=== PATIENT | female | born 1995 | race American Indian/Alaskan Native ===

== ENCOUNTER 2020-01-06 09:24 | Emergency (ER) | payer MEDICAID ==
[2020-01-06 09:52] VITALS: BP 106/63
[2020-01-06 10:13] LABS: Basophils # (Auto) 0.2 K/mm3 (0.0-0.1); Eosinophils # (Auto) 0.2 K/mm3 (0.0-0.4); Eosinophils % (Auto) 2.5 % (0.0-4.3); Hematocrit 27.4 % (30.3-42.9); Hemoglobin 8.5 gm/dl (10.1-14.3); Lymphocytes # (Auto) 1.4 K/mm3 (1.2-5.4); Lymphocytes % (Auto) 18.6 % (13.4-35.0); Mean Corpuscular HGB Conc 31 % (30-34); Monocytes # (Auto) 0.6 K/mm3 (0.0-0.8); Monocytes % (Auto) 7.6 % (0.0-7.3); Platelet Count 457 K/mm3 (140-440); Red Blood Count 4.06 M/mm3 (3.65-5.03)
[2020-01-06 10:19] LABS: Mean Corpuscular Volume 68 fl (79-97); Red Cell Distribution Width 20.5 % (13.2-15.2)
[2020-01-06 10:32] LABS: Blood Urea Nitrogen 9 mg/dL (7-17); Calcium 9.1 mg/dL (8.4-10.2); Hemolysis Index 8
[2020-01-06 10:34] LABS: BUN/Creatinine Ratio 13
[2020-01-06 11:21] LABS: HCG Qualitative,Urine Negative (Negative)
[2020-01-06 11:23] LABS: Amphetamine Screen,Urine Negative; Benzodiazepines Screen,Urine Negative; Methadone Screen,Urine Negative; Opiate Screen,Urine Negative
--- NOTE | 2020-01-06 11:23 | Emergency Department Report ---
ED Medical Clearance HPI - General Chief complaint: Medical Clearance Stated complaint: MEDICAL CLEARENCE Time Seen by Provider: 01/06/20 10:32 Source: patient Mode of arrival: Ambulatory - History of Present Illness Initial comments: Patient is a 24-year-old female presents emergency room for medical clearance for [facility]. She states that she has been at [facility] now for 2 [facility]. She states that she is at [facility] for anxiety, bipolar, depression. Patient states that she stayed out past of her curfew last night and [facility] will not reaccept her until she has had a medical clearance performed. She denies any SI or HI. She denies any physical complaints or any symptoms. She states that she does have a past medical history of iron deficiency anemia and is supposed to be on iron supplement but has not taken it for multiple months. She denies ever having to be transfused. She denies any allergies to medications. Last menstrual cycle 12/25/2019. Home medications: Previous Rx's Medication Instructions Recorded Last Taken Type Docusate Sodium [Colace] 100 mg PO BID PRN #60 capsule 01/06/20 Unknown Rx Ferrous Sulfate [Ferrous Sulfate 324 mg PO DAILY #30 tablet. 01/06/20 Unknown Rx 324 MG] cephALEXin [Keflex] 500 mg PO BID 7 Days #14 cap 01/06/20 Unknown Rx Allergies/Adverse reactions: Allergies Allergy/AdvReac Type Severity Reaction Status Date / Time No Known Allergies Allergy Unverified 12/21/19 22:08 ED Review of Systems ROS: Stated complaint: MEDICAL CLEARENCE Other details as noted in HPI Comment: All other systems reviewed and negative ED Past Medical Hx - Past Medical History Previous Medical History?: Yes Hx Psychiatric Treatment: Yes ([facility]) - Surgical History Past Surgical History?: No - Social History Smoking Status: Current Every Day Smoker Substance Use Type: Alcohol - Medications Home Medications: Home Medications Medication Instructions Recorded Confirmed Last Taken Type Docusate Sodium [Colace] 100 mg PO BID PRN #60 capsule 01/06/20 Unknown Rx Ferrous Sulfate [Ferrous Sulfate 324 mg PO DAILY #30 tablet. 01/06/20 Unknown Rx 324 MG] cephALEXin [Keflex] 500 mg PO BID 7 Days #14 cap 01/06/20 Unknown Rx ED Physical Exam - General Limitations: No Limitations General appearance: alert, in no apparent distress - Head Head exam: Present: atraumatic, normocephalic - Eye Eye exam: Present: normal appearance - ENT ENT exam: Present: mucous membranes moist - Respiratory Respiratory exam: Present: normal lung sounds bilaterally. Absent: respiratory distress, wheezes, rales, rhonchi, stridor, chest wall tenderness, accessory muscle use, decreased breath sounds, prolonged expiratory - Cardiovascular Cardiovascular Exam: Present: regular rate, normal rhythm, normal heart sounds. Absent: systolic murmur, diastolic murmur, rubs, gallop - Neurological Exam Neurological exam: Present: alert, oriented X3 - Psychiatric Psychiatric exam: Present: normal affect, normal mood - Skin Skin exam: Present: warm, dry, intact ED Course Vital Signs 01/06/20 09:47 Temperature 98.6 F Pulse Rate 111 H Respiratory 16 Rate Blood Pressure 106/63 O2 Sat by Pulse 99 Oximetry ED Medical Decision Making - Lab Data Result diagrams: 01/06/20 09:56 01/06/20 09:56 Lab Results 01/06/20 01/06/20 01/06/20 Range/Units 09:56 09:56 09:56 WBC (4.5-11.0) K/mm3 RBC (3.65-5.03) M/mm3 Hgb (10.1-14.3) gm/dl Hct (30.3-42.9) % MCV (79-97) fl MCH (28-32) pg MCHC (30-34) % RDW (13.2-15.2) % Plt Count (140-440) K/mm3 Lymph % (Auto) (13.4-35.0) % [place] % (Auto) (0.0-7.3) % Eos % (Auto) (0.0-4.3) % Baso % (Auto) (0.0-1.8) % Lymph # (Auto) (1.2-5.4) K/mm3 [place] # (Auto) (0.0-0.8) K/mm3 Eos # (Auto) (0.0-0.4) K/mm3 Baso # (Auto) (0.0-0.1) K/mm3 Seg Neutrophils % (40.0-70.0) % Seg Neutrophils # (1.8-7.7) K/mm3 Sodium 138 (137-145) mmol/L Potassium 4.0 (3.6-5.0) mmol/L Chloride 105.6 (98-107) mmol/L Carbon Dioxide 23 (22-30) mmol/L Anion Gap 13 mmol/L BUN 9 (7-17) mg/dL Creatinine 0.7 (0.6-1.2) mg/dL Estimated GFR > 60 ml/min BUN/Creatinine Ratio 13 % Glucose 78 (65-100) mg/dL Calcium 9.1 (8.4-10.2) mg/dL Urine Color (Yellow) Urine Turbidity (Clear) Urine pH (5.0-7.0) Ur Specific [place] (1.003-1.030) Urine Protein (Negative) mg/dL Urine Glucose (UA) (Negative) mg/dL Urine Ketones (Negative) mg/dL Urine Blood (Negative) Urine Nitrite (Negative) Ur Reducing Substances Urine Bilirubin (Negative) Urine Ictotest Urine Urobilinogen (<2.0) mg/dL Ur Leukocyte Esterase (Negative) Urine WBC (Auto) (0.0-6.0) /HPF Urine RBC (Auto) (0.0-6.0) /HPF U Epithel Cells (Auto) (0-13.0) /HPF Urine Bacteria (Auto) (Negative) /HPF Urine HCG, Qual (Negative) Salicylates < 0.3 L (2.8-20.0) mg/dL Urine Opiates Screen Urine Methadone Screen Acetaminophen 5.0 L (10.0-30.0) ug/mL Ur Barbiturates Screen Ur Phencyclidine Scrn Ur Amphetamines Screen U Benzodiazepines Scrn Urine Cocaine Screen U Marijuana (THC) Screen Drugs of Abuse Note Plasma/Serum Alcohol (0-0.07) % 01/06/20 01/06/20 01/06/20 Range/Units 09:56 09:56 Unknown WBC 7.8 (4.5-11.0) K/mm3 RBC 4.06 (3.65-5.03) M/mm3 Hgb 8.5 L (10.1-14.3) gm/dl Hct 27.4 L (30.3-42.9) % MCV 68 L (79-97) fl MCH 21 L (28-32) pg MCHC 31 (30-34) % RDW 20.5 H (13.2-15.2) % Plt Count 457 H (140-440) K/mm3 Lymph % (Auto) 18.6 (13.4-35.0) % [place] % (Auto) 7.6 H (0.0-7.3) % Eos % (Auto) 2.5 (0.0-4.3) % Baso % (Auto) 2.0 H (0.0-1.8) % Lymph # (Auto) 1.4 (1.2-5.4) K/mm3 [place] # (Auto) 0.6 (0.0-0.8) K/mm3 Eos # (Auto) 0.2 (0.0-0.4) K/mm3 Baso # (Auto) 0.2 H (0.0-0.1) K/mm3 Seg Neutrophils % 69.3 (40.0-70.0) % Seg Neutrophils # 5.4 (1.8-7.7) K/mm3 Sodium (137-145) mmol/L Potassium (3.6-5.0) mmol/L Chloride (98-107) mmol/L Carbon Dioxide (22-30) mmol/L Anion Gap mmol/L BUN (7-17) mg/dL Creatinine (0.6-1.2) mg/dL Estimated GFR ml/min BUN/Creatinine Ratio % Glucose (65-100) mg/dL Calcium (8.4-10.2) mg/dL Urine Color Straw (Yellow) Urine Turbidity Clear (Clear) Urine pH 6.0 (5.0-7.0) Ur Specific [place] 1.013 (1.003-1.030) Urine Protein <15 mg/dl (Negative) mg/dL Urine Glucose (UA) Neg (Negative) mg/dL Urine Ketones Neg (Negative) mg/dL Urine Blood Sm (Negative) Urine Nitrite Neg (Negative) Ur Reducing Substances Not Reportable Urine Bilirubin Neg (Negative) Urine Ictotest Not Reportable Urine Urobilinogen < 2.0 (<2.0) mg/dL Ur Leukocyte Esterase Sm (Negative) Urine WBC (Auto) 11.0 H (0.0-6.0) /HPF Urine RBC (Auto) 3.0 (0.0-6.0) /HPF U Epithel Cells (Auto) 3.0 (0-13.0) /HPF Urine Bacteria (Auto) 2+ (Negative) /HPF Urine HCG, Qual Negative (Negative) Salicylates (2.8-20.0) mg/dL Urine Opiates Screen Urine Methadone Screen Acetaminophen (10.0-30.0) ug/mL Ur Barbiturates Screen Ur Phencyclidine Scrn Ur Amphetamines Screen U Benzodiazepines Scrn Urine Cocaine Screen U Marijuana (THC) Screen Drugs of Abuse Note Plasma/Serum Alcohol 0.01 (0-0.07) % 01/06/20 Range/Units Unknown WBC (4.5-11.0) K/mm3 RBC (3.65-5.03) M/mm3 Hgb (10.1-14.3) gm/dl Hct (30.3-42.9) % MCV (79-97) fl MCH (28-32) pg MCHC (30-34) % RDW (13.2-15.2) % Plt Count (140-440) K/mm3 Lymph % (Auto) (13.4-35.0) % [place] % (Auto) (0.0-7.3) % Eos % (Auto) (0.0-4.3) % Baso % (Auto) (0.0-1.8) % Lymph # (Auto) (1.2-5.4) K/mm3 [place] # (Auto) (0.0-0.8) K/mm3 Eos # (Auto) (0.0-0.4) K/mm3 Baso # (Auto) (0.0-0.1) K/mm3 Seg Neutrophils % (40.0-70.0) % Seg Neutrophils # (1.8-7.7) K/mm3 Sodium (137-145) mmol/L Potassium (3.6-5.0) mmol/L Chloride (98-107) mmol/L Carbon Dioxide (22-30) mmol/L Anion Gap mmol/L BUN (7-17) mg/dL Creatinine (0.6-1.2) mg/dL Estimated GFR ml/min BUN/Creatinine Ratio % Glucose (65-100) mg/dL Calcium (8.4-10.2) mg/dL Urine Color (Yellow) Urine Turbidity (Clear) Urine pH (5.0-7.0) Ur Specific [place] (1.003-1.030) Urine Protein (Negative) mg/dL Urine Glucose (UA) (Negative) mg/dL Urine Ketones (Negative) mg/dL Urine Blood (Negative) Urine Nitrite (Negative) Ur Reducing Substances Urine Bilirubin (Negative) Urine Ictotest Urine Urobilinogen (<2.0) mg/dL Ur Leukocyte Esterase (Negative) Urine WBC (Auto) (0.0-6.0) /HPF Urine RBC (Auto) (0.0-6.0) /HPF U Epithel Cells (Auto) (0-13.0) /HPF Urine Bacteria (Auto) (Negative) /HPF Urine HCG, Qual (Negative) Salicylates (2.8-20.0) mg/dL Urine Opiates Screen Negative Urine Methadone Screen Negative Acetaminophen (10.0-30.0) ug/mL Ur Barbiturates Screen Negative Ur Phencyclidine Scrn Negative Ur Amphetamines Screen Negative U Benzodiazepines Scrn Negative Urine Cocaine Screen Positive U Marijuana (THC) Screen Positive Drugs of Abuse Note Disclamer Plasma/Serum Alcohol (0-0.07) % - Medical Decision Making Patient is a 24-year-old female presents emergency room for medical clearance for [place]. She states that she has been at [facility] now for 2 weeks. She states that she is at [facility] for anxiety, bipolar, depression. Patient states that she stayed out past of her curfew last night and [facility] will not reaccept her until she has had a medical clearance performed. She denies any SI or HI. She denies any physical complaints or any symptoms. She states that she does have a past medical history of iron deficiency anemia and is supposed to be on iron supplement but has not taken it for multiple months. She denies ever having to be transfused. She denies any allergies to medications. Last menstrual cycle 12/25/2019. Initial vitals with mild tachycardia otherwise normal. No abnormality on physical examination as documented in chart. Labs with stable anemia with H/H at 8.5 and 27. UA shows evidence of mild UTI, urine is negative. UDS is positive for cocaine and marijuana. otherwise ,labs are stable. She does not have any emergent condition at this time preventing clearance to [place]. Patient eloped from the emergency department prior to all of her testing coming back and prior to receiving her prescriptions. Called patient's number present in the chart and left a voicemail and she did not answer. It appears patient has eloped from the emergency department, she is alert and oriented x4, she is free from distracting injury, she has decision- making capacity. ED Disposition Clinical Impression: Cocaine abuse, Marijuana abuse Anemia Qualifiers: Anemia type: iron deficiency Iron deficiency anemia type: unspecified iron deficiency Qualified Code(s): D50.9 - Iron deficiency anemia, unspecified UTI (urinary tract infection) Qualifiers: Urinary tract infection type: acute cystitis Hematuria presence: without hematuria Qualified Code(s): N30.00 - Acute cystitis without hematuria Disposition: ELOPED Is pt being admited?: No Does the pt Need Aspirin: No Condition: Stable Instructions: Iron Deficiency Anemia, Pediatric, Urinary Tract Infection, Adult Additional Instructions: Please take medication as prescribed. Please increase your water intake. Please follow-up with your primary care doctor for examination. Your urine shows that you have a bladder infection. Your drug test was also positive for cocaine and marijuana, please discontinue drug use. Return to emergency room for any new or worsening symptoms. Prescriptions: Docusate Sodium [Colace] 100 mg PO BID PRN #60 capsule PRN Reason: Constipation Ferrous Sulfate [Ferrous Sulfate 324 MG] 324 mg PO DAILY #30 tablet. cephALEXin [Keflex] 500 mg PO BID 7 Days #14 cap Referrals: PRIMARY CAREMD [Primary Care Provider] - 2-3 Days MEGHAN HIRSCH MD [Staff Physician] - 2-3 Days [facility] [Provider Group] - 2-3 Days Time of Disposition: 12:04 Print Language: CAPE VERDEAN
[2020-01-06 11:31] LABS: Bacteria,Urine 2+ /HPF (Negative); Bilirubin,Urine NEG (Negative); Blood,Urine SM (Negative); Color,Urine Straw (Yellow); Protein,Urine <15 mg/dL mg/dL (Negative); Urobilinogen,Urine < 2.0 mg/dL (<2.0)
[2020-01-06 11:36] LABS: Cannabinoid Screen,Urine Positive; Cocaine Screen,Urine Positive
== END 2020-01-06 12:45 | disposition left against medical advice (07) ==
LOC: ED 09:24
DX: N39.0 Urinary tract infection, site not specified (principal); D64.9 Anemia, unspecified; F14.10 Cocaine abuse, uncomplicated; F12.10 Cannabis abuse, uncomplicated; F31.9 Bipolar disorder, unspecified; F17.200 Nicotine dependence, unspecified, uncomplicated; Z79.899 Other long term (current) drug therapy
CPT/HCPCS: 36415; 80048; 80307; 80320; 81001; 81025; 85025; 87086; G0480

== ENCOUNTER 2020-01-11 23:45 | Emergency (ER) | payer MEDICAID ==
[2020-01-12 07:48] LABS: Basophils # (Auto) 0.1 K/mm3 (0.0-0.1); Eosinophils # (Auto) 0.3 K/mm3 (0.0-0.4); Eosinophils % (Auto) 5.1 % (0.0-4.3); Hematocrit 28.2 % (30.3-42.9); Hemoglobin 8.7 gm/dl (10.1-14.3); Lymphocytes # (Auto) 1.8 K/mm3 (1.2-5.4); Lymphocytes % (Auto) 34.7 % (13.4-35.0); Mean Corpuscular HGB Conc 31 % (30-34); Mean Corpuscular Volume 68 fl (79-97); Monocytes # (Auto) 0.6 K/mm3 (0.0-0.8); Monocytes % (Auto) 11.5 % (0.0-7.3); Platelet Count 383 K/mm3 (140-440); Red Blood Count 4.14 M/mm3 (3.65-5.03); Red Cell Distribution Width 21.6 % (13.2-15.2)
[2020-01-12 07:55] LABS: Amphetamine Screen,Urine Negative; Benzodiazepines Screen,Urine Negative; Cocaine Screen,Urine Negative; Methadone Screen,Urine Negative; Opiate Screen,Urine Negative
[2020-01-12 07:56] LABS: Blood Urea Nitrogen 9 mg/dL (7-17); Calcium 8.6 mg/dL (8.4-10.2); Hemolysis Index 2
[2020-01-12 07:58] LABS: Bilirubin,Urine NEG (Negative); Blood,Urine NEG (Negative); Color,Urine Yellow (Yellow); Protein,Urine <15 mg/dL mg/dL (Negative); Urobilinogen,Urine < 2.0 mg/dL (<2.0); WBC,Urine < 1.0 /HPF (0.0-6.0)
[2020-01-12 08:02] LABS: BUN/Creatinine Ratio 15
[2020-01-12 08:18] LABS: Cannabinoid Screen,Urine Positive
[2020-01-12 08:26] VITALS: BP 113/65
--- NOTE | 2020-01-12 08:35 | Emergency Department Report ---
ED General Adult HPI - General Chief complaint: Psych Stated complaint: MEDICAL CLEARANCE` Time Seen by Provider: 01/12/20 07:35 Source: patient Mode of arrival: Stretcher Limitations: No Limitations - History of Present Illness Initial comments: This is a 24-year-old female who [facility] that [facility] She states that the facility requested "medical clearance" because she stayed out of task her curfew. She has no specific complaint. She is not suicidal or homicidal or hallucinating. She offers no other explanation for her emergency department medical screening. Severity scale (0 -10): 0 - Related Data Previous Rx's Medication Instructions Recorded Last Taken Type Docusate Sodium [Colace] 100 mg PO BID PRN #60 capsule 01/06/20 Unknown Rx Ferrous Sulfate [Ferrous Sulfate 324 mg PO DAILY #30 tablet. 01/06/20 Unknown Rx 324 MG] cephALEXin [Keflex] 500 mg PO BID 7 Days #14 cap 01/06/20 Unknown Rx Ferrous Gluconate [Ferrous 324 mg PO TID #30 tablet 01/12/20 Unknown Rx Gluconate 324 MG] Allergies Allergy/AdvReac Type Severity Reaction Status Date / Time No Known Allergies Allergy Unverified 12/21/19 22:08 ED Review of Systems ROS: Stated complaint: MEDICAL CLEARANCE` Other details as noted in HPI Comment: All other systems reviewed and negative ED Past Medical Hx - Past Medical History Previous Medical History?: Yes Hx Psychiatric Treatment: Yes (Bipolar, Depression,) - Surgical History Past Surgical History?: No - Social History Smoking Status: Current Every Day Smoker Substance Use Type: Alcohol, Cocaine - Medications Home Medications: Home Medications Medication Instructions Recorded Confirmed Last Taken Type Docusate Sodium [Colace] 100 mg PO BID PRN #60 capsule 01/06/20 Unknown Rx Ferrous Sulfate [Ferrous Sulfate 324 mg PO DAILY #30 tablet. 01/06/20 Unknown Rx 324 MG] cephALEXin [Keflex] 500 mg PO BID 7 Days #14 cap 01/06/20 Unknown Rx Ferrous Gluconate [Ferrous 324 mg PO TID #30 tablet 01/12/20 Unknown Rx Gluconate 324 MG] ED Physical Exam - General Limitations: No Limitations General appearance: alert, in no apparent distress - Head Head exam: Present: atraumatic, normocephalic - Eye Eye exam: Present: normal appearance. Absent: scleral icterus - ENT ENT exam: Present: mucous membranes moist - Neck Neck exam: Present: normal inspection - Respiratory Respiratory exam: Present: normal lung sounds bilaterally. Absent: respiratory distress - Cardiovascular Cardiovascular Exam: Present: regular rate, normal rhythm. Absent: systolic murmur, diastolic murmur, rubs, gallop - GI/Abdominal GI/Abdominal exam: Present: soft, normal bowel sounds. Absent: distended, tenderness, guarding, rebound - Extremities Exam Extremities exam: Present: normal inspection - Back Exam Back exam: Present: normal inspection - Neurological Exam Neurological exam: Present: alert, oriented X3, CN II-XII intact. Absent: motor sensory deficit - Psychiatric Psychiatric exam: Present: normal mood, flat affect - Skin Skin exam: Present: warm, dry, intact, normal color. Absent: rash ED Course Vital Signs 01/12/20 01/12/20 06:24 08:23 Temperature 98 F 98.3 F Pulse Rate 68 90 Respiratory 18 18 Rate Blood Pressure 112/68 113/65 [Left] O2 Sat by Pulse 100 100 Oximetry ED Medical Decision Making - Lab Data Result diagrams: 01/12/20 06:49 01/12/20 06:49 Laboratory Results - last 24 hr 01/12/20 01/12/20 01/12/20 06:49 06:49 06:49 WBC RBC Hgb Hct MCV MCH MCHC RDW Plt Count Lymph % (Auto) [place] % (Auto) Eos % (Auto) Baso % (Auto) Lymph # (Auto) [place] # (Auto) Eos # (Auto) Baso # (Auto) Seg Neutrophils % Seg Neutrophils # Sodium 139 Potassium 3.7 Chloride 106.8 Carbon Dioxide 25 Anion Gap 11 BUN 9 Creatinine 0.6 Estimated GFR > 60 BUN/Creatinine Ratio 15 Glucose 93 Calcium 8.6 HCG, Qual Urine Color Urine Turbidity Urine pH Ur Specific [place] Urine Protein Urine Glucose (UA) Urine Ketones Urine Blood Urine Nitrite Urine Bilirubin Urine Urobilinogen Ur Leukocyte Esterase Urine WBC (Auto) Urine RBC (Auto) U Epithel Cells (Auto) Salicylates < 0.3 L Urine Opiates Screen Urine Methadone Screen Acetaminophen 5.0 L Ur Barbiturates Screen Ur Phencyclidine Scrn Ur Amphetamines Screen U Benzodiazepines Scrn Urine Cocaine Screen U Marijuana (THC) Screen Plasma/Serum Alcohol 01/12/20 01/12/20 01/12/20 06:49 06:49 06:49 WBC 5.1 RBC 4.14 Hgb 8.7 L Hct 28.2 L MCV 68 L MCH 21 L MCHC 31 RDW 21.6 H Plt Count 383 Lymph % (Auto) 34.7 [place] % (Auto) 11.5 H Eos % (Auto) 5.1 H Baso % (Auto) 2.0 H Lymph # (Auto) 1.8 [place] # (Auto) 0.6 Eos # (Auto) 0.3 Baso # (Auto) 0.1 Seg Neutrophils % 46.7 Seg Neutrophils # 2.4 Sodium Potassium Chloride Carbon Dioxide Anion Gap BUN Creatinine Estimated GFR BUN/Creatinine Ratio Glucose Calcium HCG, Qual Negative Urine Color Urine Turbidity Urine pH Ur Specific [place] Urine Protein Urine Glucose (UA) Urine Ketones Urine Blood Urine Nitrite Urine Bilirubin Urine Urobilinogen Ur Leukocyte Esterase Urine WBC (Auto) Urine RBC (Auto) U Epithel Cells (Auto) Salicylates Urine Opiates Screen Urine Methadone Screen Acetaminophen Ur Barbiturates Screen Ur Phencyclidine Scrn Ur Amphetamines Screen U Benzodiazepines Scrn Urine Cocaine Screen U Marijuana (THC) Screen Plasma/Serum Alcohol < 0.01 01/12/20 01/12/20 07:26 07:26 WBC RBC Hgb Hct MCV MCH MCHC RDW Plt Count Lymph % (Auto) [place] % (Auto) Eos % (Auto) Baso % (Auto) Lymph # (Auto) [place] # (Auto) Eos # (Auto) Baso # (Auto) Seg Neutrophils % Seg Neutrophils # Sodium Potassium Chloride Carbon Dioxide Anion Gap BUN Creatinine Estimated GFR BUN/Creatinine Ratio Glucose Calcium HCG, Qual Urine Color Yellow Urine Turbidity Hazy Urine pH 6.0 Ur Specific [place] 1.019 Urine Protein <15 mg/dl Urine Glucose (UA) Neg Urine Ketones Neg Urine Blood Neg Urine Nitrite Neg Urine Bilirubin Neg Urine Urobilinogen < 2.0 Ur Leukocyte Esterase Neg Urine WBC (Auto) < 1.0 Urine RBC (Auto) 3.0 U Epithel Cells (Auto) 17.0 H Salicylates Urine Opiates Screen Negative Urine Methadone Screen Negative Acetaminophen Ur Barbiturates Screen Negative Ur Phencyclidine Scrn Negative Ur Amphetamines Screen Negative U Benzodiazepines Scrn Negative Urine Cocaine Screen Negative U Marijuana (THC) Screen Positive Plasma/Serum Alcohol Critical care attestation.: If time is entered above; I have spent that time in minutes in the direct care of this critically ill patient, excluding procedure time. ED Disposition Clinical Impression: Medical clearance for psychiatric admission Anemia, iron deficiency Qualifiers: Iron deficiency anemia type: unspecified iron deficiency Qualified Code(s): D50.9 - Iron deficiency anemia, unspecified Disposition: TO HOME OR SELFCARE Is pt being admited?: No Does the pt Need Aspirin: No Condition: Stable Instructions: Preventing Iron Deficiency Anemia, Adult Additional Instructions: You are anemic apparently due to iron deficiency. You are prescribed iron. Follow-up with a torpedo specialist or our the [facility] as indicated. Return to the emergency department any acute change or problem. Prescriptions: Ferrous Gluconate [Ferrous Gluconate 324 MG] 324 mg PO TID #30 tablet Referrals: PRIMARY CARE [Primary Care Provider] - 3-5 Days [facility] [Provider Group] - 3-5 Days Time of Disposition: 08:37
== END 2020-01-12 08:46 | disposition home or self-care (01) ==
LOC: ED 23:45
DX: D50.9 Iron deficiency anemia, unspecified (principal); Z04.6 Encounter for general psychiatric examination, requested by authority; F31.9 Bipolar disorder, unspecified; F17.200 Nicotine dependence, unspecified, uncomplicated; F14.10 Cocaine abuse, uncomplicated; Z79.899 Other long term (current) drug therapy
CPT/HCPCS: 36415; 80048; 80307; 80320; 81001; 84703; 85025; G0480

== ENCOUNTER 2020-07-11 04:42 | Emergency (ER) | payer MEDICAID ==
[2020-07-11 04:51] VITALS: BP 101/60
[2020-07-11 05:36] LABS: Bilirubin,Urine NEG (Negative); Blood,Urine NEG (Negative); Color,Urine Colorless (Yellow); Protein,Urine <15 mg/dL mg/dL (Negative); Urobilinogen,Urine < 2.0 mg/dL (<2.0)
[2020-07-11 05:37] LABS: Hematocrit 37.5 % (30.3-42.9); Hemoglobin 12.4 gm/dl (10.1-14.3); Mean Corpuscular HGB Conc 33 % (30-34); Mean Corpuscular Volume 83 fl (79-97); Platelet Count 240 K/mm3 (140-440)
[2020-07-11 05:38] LABS: Red Cell Distribution Width 24.8 % (13.2-15.2)
[2020-07-11 05:41] LABS: WBC,Urine < 1.0 /HPF (0.0-6.0)
[2020-07-11 06:20] LABS: Total Cells Counted 100
[2020-07-11 06:21] LABS: Platelet Estimate Consistent w Auto; RBC Morphology Normal
== END 2020-07-11 06:35 | disposition left against medical advice (07) ==
LOC: ED 04:42
DX: O26.891 Other specified pregnancy related conditions, first trimester (principal); Z3A.15 15 weeks gestation of pregnancy
CPT/HCPCS: 36415; 81001; 84702; 85007; 85025

== ENCOUNTER 2020-07-14 09:23 | Emergency (ER) | payer MEDICAID ==
[2020-07-14 09:30] VITALS: BP 112/53
--- NOTE | 2020-07-14 11:08 | Event Note ---
ED Screening Note Date of service: 07/14/20 Time: 11:06 ED Screening Note: 25-year-old female patient () presents to the emergency department for OB evaluation. States she "hasn't felt her baby move in about a week." Patient is unsure of exact gestational age but states she is "three, almost four months along." Patient has not been evaluated by an grader meat at any point during her . Patient reportedly underwent an ultrasound at an outside clinic last month when she found out she was . No vaginal bleeding. No urinary symptoms. General: Awake, appropriately interactive, no acute distress. Neck: Supple. Full range of motion intact. Cardiovascular: Normal peripheral perfusion. Pulmonary: No respiratory distress. Patient is speaking normally without use of accessory muscles. Skin: No apparent rashes or lesions. Neurological: No facial asymmetry. Speech is clear. Follows commands. Patient is alert and oriented. Musculoskeletal: Moves all four extremities spontaneously with normal range of motion. Psych: Cooperative. Appropriate mood and affect. I have greeted and performed a focused rapid initial assessment of this patient. A comprehensive ED assessment and evaluation of the patient, analysis of all test results, and completion of the medical decision-making process will be conducted by additional ED providers. This initial assessment/diagnostic orders/clinical plan/treatment(s) is/are subject to change based on patients health status, clinical progression and re-assessment. Further treatment and workup at subsequent clinical provider's discretion. Patient/guardian urged not to elope from the ED as their condition may be serious if not clinically assessed and managed.
--- NOTE | 2020-07-14 13:09 | Emergency Department Report ---
Stated Complaint: 15 WKS NOT MOVING IN A WEEK Time Seen by Provider: 07/14/20 12:53 - HPI History of Present Illness: 25-year-old -0-0-1 who presents the ED at approximately 15 months gestation with a last menstrual period of March 23, 2020 who has not yet developed an OB visit for this presented complaining of no movement x1 week. Patient states that for the past 1 week she has not felt her baby move. Patient denies any fever, chills, nausea vomiting abdominal pelvic pain or any vaginal bleeding. Patient states that she presents here for evaluation to make sure that her baby is still alive. She has no other symptoms. Patient did note that she had a confirmed and her clinic couple of months ago. Patient does note that she is taking vitamins. - ROS Review of Systems: As noted in HPI. All systems reviewed and negative - Exam Vital Signs: Vital Signs 07/14/20 09:28 Temperature 98.4 F Pulse Rate 97 H Respiratory 14 Rate Blood Pressure 112/53 O2 Sat by Pulse 98 Oximetry Physical Exam: GENERAL: Alert and oriented x3, no apparent distress, Normal Gait, atraumatic. HEAD: Head is normocephalic and a-traumatic. LUNGS: Symetrical with respiration, No wheezing, no rales or crackles, CTAB. HEART: S1, S2 present, regular rate and rhythm without murmur, no rubs, no gallops. Non tender to palpation ABDOMEN: Gravid uterus, no organomegaly was noted,Positive bowel sounds, soft, and non-distended. . Nontender to palpation on all Quadrants, NO CVA tenderness. PSYCHIATRIC: Mood is congruent with affect, denies suicidal or homicidal ideations. SKIN: Warm and dry, No lesions, No ulceration or induration present. MSE screening note: Focused history and physical exam performed. Due to findings the following was ordered: ED Medical Decision Making - Medical Decision Making This 25-year-old female who presented to the ED for evaluation. Bedside ultrasound was performed by this provider. Visualize a single intrauterine at about 14 to 15 weeks gestation with a heart tone of 145 bpm. Patient visualized findings also discussed findings with the patient. Discussed the patient need to follow-up with the [facility]. Referrals given to patient. Patient is in no acute distress not shows any signs of uterine distress. No vaginal bleed, nontender abdomen. ED Disposition for MSE Clinical Impression: Intrauterine normal Disposition: DC-01 TO HOME OR SELFCARE Is pt being admited?: No Does the pt Need Aspirin: No Condition: Stable Instructions: Heartburn During , Second Trimester of , [id number] Additional Instructions: Make sure to follow up with the [facility] as discussed. Take all your medications as you've been prescribed. You may take Tylenol as needed or any Tylenol products If you have any worsening symptoms or develop new symptoms please return to ED immediately. Referrals: PRIMARY CARE, [Primary Care Provider] - 3-5 Days [facility] [Provider Group] - 3-5 Days [facility] [Provider Group] - 3-5 Days Forms: Accompanied Note, Work/School Release Form(ED) Time of Disposition: 13:26
== END 2020-07-14 13:44 | disposition home or self-care (01) ==
LOC: ED 09:23
DX: O00.01 Abdominal pregnancy with intrauterine pregnancy (principal); Z3A.15 15 weeks gestation of pregnancy
CPT/HCPCS: 99281

== ENCOUNTER 2021-10-08 16:57 | Emergency (ER) | payer OTHER, MEDICAID ==
[2021-10-08] MEDS ORDERED: ACETAMINOPHEN 500 MG TAB PO ONE (18:35)
--- NOTE | 2021-10-08 19:31 | Ultrasound Report ---
ULTRASOUND OBSTETRIC Indication: abdominal pain, vaginal bleeding, approx 12 weeks Findings: There is a single, living intrauterine . [place]-rump length = 6.4 cm = 12 weeks, 5 day(s). heart rate is 164 beats per minute. Subchorionic hemorrhage is noted adjacent to the gestational sac, this measures 2.3 x 1.3 cm. There is a 2.5 cm right ovarian cyst. Left ovary is unremarkable. Impression: 1. Single, living intrauterine with estimated sonographic age of 12 weeks, 5 day(s). 2. Subchorionic hemorrhage adjacent to the gestational sac inferiorly. Signer Name: Luke Cochran MD Signed: 10/08/2021 7:27 PM Workstation Name: [id number]
--- NOTE | 2021-10-08 20:00 | Emergency Department Report ---
<NETTEASHISH - Last Filed: 10/08/21 19:54> ED Female HPI - General Chief complaint: Vaginal Bleeding Stated complaint: 12 WKS /VAGINAL BLEEDING Source: patient, police, EMS Mode of arrival: Stretcher Limitations: No Limitations - History of Present Illness Initial comments: Patient is a [age]-year-old female who is approximately 12 weeks gestation presents to the ED with complaint of acute onset persistent diffuse low abdominal pain and vaginal bleeding for the last 2 days. Patient states that in the last 6 hours, the pain and the bleeding have significantly worsened. Patient is currently in senior care and was accompanied to the hospital by [facility]'s deputy. Patient denies dizziness, syncope, chest pain, fever, chills, headache, lightheadedness, cough, sore throat, traumatic injury or heavy lifting, dysuria, urinary frequency and urgency, vaginal discharge, low back pain or diarrhea. MD Complaint: vaginal bleeding, pelvic pain, other (Approximately 12 weeks gestation) -: Gradual, days(s) (2) Location: suprapubic, other (Vaginal) Radiation: non-radiating Severity: severe Severity scale (0 -10): 7 Quality: cramping, sharp Consistency: constant Improves with: none Worsens with: none Are you Now?: Yes (Approximately 12 weeks gestation) Associated Symptoms: vaginal bleeding, abdominal pain. denies: nausea/vomiting, fever/chills, headaches, loss of appetite, dysuria, hematuria, rash, shortness of breath, syncope, weakness - Related Data Sexually active: Yes : 3 Para: 2 A: 0 Previous Rx's Medication Instructions Recorded Last Taken Type Docusate Sodium [Colace] 100 mg PO BID PRN #60 capsule 01/06/20 Unknown Rx Ferrous Sulfate [Ferrous Sulfate 324 mg PO DAILY #30 tablet. 01/06/20 Unknown Rx 324 MG] cephALEXin [Keflex] 500 mg PO BID 7 Days #14 cap 01/06/20 Unknown Rx Ferrous Gluconate [Ferrous 324 mg PO TID #30 tablet 01/12/20 Unknown Rx Gluconate 324 MG] cephALEXin [Keflex] 500 mg PO BID 7 Days #14 cap 10/08/21 Unknown Rx Allergies Allergy/AdvReac Type Severity Reaction Status Date / Time No Known Allergies Allergy Verified 09/01/22 17:09 ED Review of Systems Constitutional: denies: chills, fever Eyes: denies: eye pain, eye discharge, vision change ENT: denies: ear pain, throat pain Respiratory: denies: cough, shortness of breath, wheezing Cardiovascular: denies: chest pain, palpitations Endocrine: no symptoms reported Gastrointestinal: abdominal pain (Suprapubic pain). denies: nausea, vomiting, diarrhea Genitourinary: abnormal menses (Vaginal bleeding). denies: urgency, dysuria, discharge Musculoskeletal: denies: back pain, joint swelling, arthralgia Skin: denies: rash, lesions Neurological: denies: headache, weakness, paresthesias Psychiatric: denies: anxiety, depression Hematological/Lymphatic: denies: easy bleeding, easy bruising ED Past Medical Hx - Past Medical History Hx Psychiatric Treatment: Yes (Bipolar, Depression,) Additional medical history: anemia - Social History Smoking Status: Unknown if ever smoked - Medications Home Medications: Home Medications Medication Instructions Recorded Confirmed Last Taken Type Docusate Sodium [Colace] 100 mg PO BID PRN #60 capsule 01/06/20 Unknown Rx Ferrous Sulfate [Ferrous Sulfate 324 mg PO DAILY #30 tablet.dr 01/06/20 Unknown Rx 324 MG] cephALEXin [Keflex] 500 mg PO BID 7 Days #14 cap 01/06/20 Unknown Rx Ferrous Gluconate [Ferrous 324 mg PO TID #30 tablet 01/12/20 Unknown Rx Gluconate 324 MG] cephALEXin [Keflex] 500 mg PO BID 7 Days #14 cap 10/08/21 Unknown Rx ED Physical Exam - General Limitations: No Limitations General appearance: alert, in no apparent distress - Head Head exam: Present: atraumatic, normocephalic, normal inspection - Eye Eye exam: Present: normal appearance, PERRL, EOMI Pupils: Present: normal accommodation - ENT ENT exam: Present: normal exam, normal orophraynx, mucous membranes moist, TM's normal bilaterally, normal external ear exam - Neck Neck exam: Present: normal inspection, full ROM - Respiratory Respiratory exam: Present: normal lung sounds bilaterally. Absent: respiratory distress, wheezes, rales, stridor, chest wall tenderness, accessory muscle use, decreased breath sounds, prolonged expiratory - Cardiovascular Cardiovascular Exam: Present: normal rhythm, tachycardia, normal heart sounds. Absent: systolic murmur, diastolic murmur, rubs, gallop - GI/Abdominal GI/Abdominal exam: Present: soft, tenderness (Palpable mild suprapubic tenderness), normal bowel sounds. Absent: guarding, rebound, hypoactive bowel sounds, organomegaly, mass - Extremities Exam Extremities exam: Present: normal inspection, full ROM, normal capillary refill. Absent: tenderness - Back Exam Back exam: Present: normal inspection, full ROM. Absent: tenderness, CVA tenderness (R), CVA tenderness (L), muscle spasm, paraspinal tenderness, vertebral tenderness - Neurological Exam Neurological exam: Present: alert, oriented X3, CN II-XII intact, normal gait, reflexes normal - Psychiatric Psychiatric exam: Present: normal affect, normal mood - Skin Skin exam: Present: warm, dry, intact, normal color. Absent: rash ED Medical Decision Making - Medical Decision Making This is a [age]0 ten 6-year-old female who is approximately 12 weeks gestation presents to the ED with complaint of acute onset persistent diffuse low abdominal pain and vaginal bleeding for the last 2 days. Patient states that in the last 6 hours, the pain and the bleeding have significantly worsened. Jazmin brothers is currently in senior care and was accompanied to the hospital by [facility]'s deputy. In the ED, patient is alert and oriented x3 and is not in any distress. Patient was treated for pain in the ED. All labs were drawn and transvaginal ultrasound also ordered. Patient care was transferred to my colleague Mr. Emil Rg, SCHOOL PHOTOGRAPHER at shift change at 2000 hours. He shall review all lab test results and ultrasound reports and disposition the patient accordingly. - Differential Diagnosis Threatened miscarriage;subchor. bleed; ovarian cyst; UTI; ED Disposition Clinical Impression: Vaginal bleeding during Subchorionic bleed Qualifiers: Fetus number: single or unspecified fetus Trimester: second trimester Qualified Code(s): O41.8X20 - Other specified disorders of amniotic fluid and membranes, second trimester, not applicable or unspecified; O46.8X2 - Other antepartum hemorrhage, second trimester Disposition: 01 HOME / SELF CARE / HOMELESS Is pt being admited?: No Does the pt Need Aspirin: No Condition: Stable Instructions: Abdominal Pain During , [id number], Threatened Miscarriage, [id number], Vaginal Bleeding During , First Trimester, [id number] Additional Instructions: You are 12 weeks and 5 days , take medications as prescribed, follow-up with PROGRAM ENGINEER in 2 to 3 days. Pelvic rest until cleared by PROGRAM ENGINEER. Return to emergency department should symptoms worsen. Prescriptions: cephALEXin [Keflex] 500 mg PO BID 7 Days #14 cap Referrals: ZAC ROBLES MD [Staff Physician] - 3-5 Days Forms: Work/School Release Form(ED) <JAYDA PAULSON - Last Filed: 10/08/21 21:28> ED Review of Systems ROS: Stated complaint: 12 WKS /VAGINAL BLEEDING Other details as noted in HPI ED Course Vital Signs 10/08/21 17:08 Temperature 98.7 F Pulse Rate 104 H Respiratory 14 Rate Blood Pressure 107/58 [Left] O2 Sat by Pulse 100 Oximetry ED Medical Decision Making - Lab Data Result diagrams: 10/08/21 20:12 10/08/21 20:12 - Radiology Data Radiology results: report reviewed, image reviewed ULTRASOUND OBSTETRIC Indication: abdominal pain, vaginal bleeding, approx 12 weeks Findings: There is a single, living intrauterine . [place]-rump length = 6.4 cm = 12 weeks, 5 day(s). heart rate is 164 beats per minute. Subchorionic hemorrhage is noted adjacent to the gestational sac, this measures 2.3 x 1.3 cm. There is a 2.5 cm right ovarian cyst. Left ovary is unremarkable. Impression: 1. Single, living intrauterine with estimated sonographic age of 12 weeks, 5 day(s). 2. Subchorionic hemorrhage adjacent to the gestational sac inferiorly. Signer Name: Luke Cochran MD Signed: 10/08/2021 7:27 PM Workstation Name: [id number] Transcribed By: BALA Dictated By: Luke Cochran MD Electronically Authenticated By: Luke Cochran MD Signed Date/Time: 10/08/211926 DD/ 24 TD/TT: - Medical Decision Making Ultrasound OB equal 12 weeks and 5 days Feta HR 164 bpm. single IUP intact, right ovarian cyst, small subchorionic hemorrhage. Discussed same with patient. Pain patient DC to home in stable condition at this time. Patient will follow-up with PROGRAM ENGINEER in 2 to 3 days. Patient will return to emergency department should symptoms worsen. Patient released to custody of [facility]. Critical care attestation.: If time is entered above; I have spent that time in minutes in the direct care of this critically ill patient, excluding procedure time. ED Disposition Time of Disposition: 21:28
[2021-10-08 20:34] LABS: Bacteria,Urine 1+ /HPF (Negative); Mucus,Urine FEW /HPF
[2021-10-08 20:36] LABS: Basophils % (Auto) 0.6 % (0.0-1.8); Eosinophils # (Auto) 0.1 K/mm3 (0.0-0.4); Eosinophils % (Auto) 2.1 % (0.0-4.3); Hematocrit 36.1 % (30.3-42.9); Hemoglobin 11.8 gm/dl (10.1-14.3); Lymphocytes # (Auto) 1.6 K/mm3 (1.2-5.4); Lymphocytes % (Auto) 29.6 % (13.4-35.0); Mean Corpuscular HGB Conc 33 % (30-34); Mean Corpuscular Volume 87 fl (79-97); Monocytes # (Auto) 0.5 K/mm3 (0.0-0.8); Platelet Count 191 K/mm3 (140-440); Red Blood Count 4.14 M/mm3 (3.65-5.03); Red Cell Distribution Width 17.3 % (13.2-15.2)
[2021-10-08 20:49] LABS: Color,Urine Colorless (Yellow)
[2021-10-08 20:55] LABS: Alanine Aminotransferase 9 units/L (7-56); Albumin 3.6 g/dL (3.9-5); Blood Urea Nitrogen 4 mg/dL (7-17); Hemolysis Index 10
[2021-10-08 21:00] LABS: BUN/Creatinine Ratio 10
[2021-10-08 21:48] VITALS: BP 114/64
== END 2021-10-08 21:46 | disposition home or self-care (01) ==
LOC: ED 16:57
DX: O46.8X1 Other antepartum hemorrhage, first trimester (principal); Z3A.12 12 weeks gestation of pregnancy
CPT/HCPCS: 36415; 76801; 80053; 81001; 84702; 85025; 86900; 86901; 99284